=== PATIENT | female | born 1995 | race Caucasian/White ===

== ENCOUNTER 2022-10-29 03:24 | Inpatient (IN) | payer BC ==
[2022-10-29 03:38] VITALS: BMI 34.8
[2022-10-29] MEDS ORDERED: hydrALAZINE 20 MG/ML VIAL SLOW IVP PRN ×2 (04:30→04:41)
[2022-10-29 04:34] LABS: Fetal Membranes Rupture RUPTURE DETECTED (No Rupture)
[2022-10-29] MEDS ORDERED: Carboprost 250 MCG/ML AMP IM PRN (04:41)
[2022-10-29] MEDS ORDERED: Docusate 100 MG CAP PO PRN (04:41)
[2022-10-29] MEDS ORDERED: Misoprostol 200 MCG TAB PR PRN (04:41)
[2022-10-29] MEDS ORDERED: Ondansetron PF 4 MG/2 ML Vial IVP PRN ×2 (04:41→14:18)
[2022-10-29] MEDS ORDERED: Methylergonovine 0.2 MG/ML VIAL IM PRN (04:41)
[2022-10-29] MEDS ORDERED: Diphenoxylate HCl/Atropine Tablet PO PRN (04:41)
[2022-10-29] MEDS ORDERED: Acetaminophen 500 MG TAB PO PRN (04:41)
[2022-10-29] MEDS ORDERED: Promethazine HCl 25 MG/ML VIAL IM PRN ×2 (04:41→14:18)
[2022-10-29] MEDS ORDERED: fentaNYL 50 mcg/mL 1 mL Vial SLOW IVP PRN (04:41)
[2022-10-29] MEDS ORDERED: Butorphanol Tartrate 1 MG/ML VIAL SLOW IVP PRN (04:41)
[2022-10-29] MEDS ORDERED: Tranexamic Acid 1,000 MG/10 ML VIAL IVP PRN (04:41)
[2022-10-29] MEDS ORDERED: HYDROcodone/Acetaminophen 5/325 mg Tablet PO PRN (04:44)
[2022-10-29] MEDS ORDERED: Ibuprofen 800 MG TAB PO PRN (04:44)
[2022-10-29] MEDS ORDERED: Lidocaine 1% (PF) 30 ML VIAL SC PRN (04:44)
[2022-10-29] MEDS ORDERED: Acetaminophen/Codeine 30-300mg Tablet PO PRN (04:44)
[2022-10-29] MEDS ORDERED: Lactated Ringer's 1,000 ML IV SCH (04:45)
[2022-10-29] MEDS ORDERED: NS w/ Oxytocin 30 units 500 ML IV SCH (04:45)
[2022-10-29 06:25] LABS: Hematocrit 37.1 % (34.9-44.5); Hemoglobin 12.2 g/dL (12.0-15.5); Mean Corpuscular HGB CONC 32.9 g/dL (32.0-36.0); Mean Corpuscular Hemoglobin 27.8 pg (27.0-33.0); Mean Corpuscular Volume 84.5 fl (81.6-98.3); Mean Platelet Volume 10.7 fl (7.4-10.4); Platelet Count 195 10x3/uL (150-450); RBC Distribution Width 13.6 % (11.5-14.5); Red Blood Cell (RBC) Count 4.39 10x6/uL (3.90-5.03); White Blood Cell (WBC) Count 13.4 10x3/uL (3.5-10.5)
[2022-10-29] MEDS ORDERED: Calcium Carbonate 500 MG ChewTAB PO PRN (07:45)
[2022-10-29 08:56] LABS: HBSAg Index 0.21 S/CO (0-0.99); Hep B Surf Ag - L&D Non-Reactive S/CO (NonReactive); Syphilis Antibody Nonreactive (Nonreactive); Syphilis Antibody Index 0.08 S/CO (<1.00 Non-Reactive)
[2022-10-29] MEDS ORDERED: fentaNYL/Ropivacaine Epidural 100 ML ONE ×2 (11:03→19:53)
[2022-10-29] MEDS ORDERED: Lactated Ringer's 500 ML IV PRN (14:18)
[2022-10-29] MEDS ORDERED: diphenhydrAMINE 50 MG/ML VIAL IVP PRN (14:18)
[2022-10-29] MEDS ORDERED: ePHEDrine Sulfate 50 MG/10 ML VIAL SLOW IVP PRN (14:18)
[2022-10-29] MEDS ORDERED: Acetaminophen 325 MG TAB PO PRN (14:18)
[2022-10-29] MEDS ORDERED: Naloxone HCl 0.4 mg/ml Vial IVP PRN ×2 (14:18)
[2022-10-29] MEDS ORDERED: Moisturizing Cream (Eucerin) 113 GM JAR TOP PRN (14:18)
[2022-10-29] MEDS ORDERED: Communication Order-Pharmacy FS SCH (14:30)
[2022-10-29] MEDS ORDERED: fentaNYL 2 mcg/Ropivacaine 0.2% Epidural 100 ML CADD EPIDURAL SCH (14:30)
[2022-10-29] MEDS ORDERED: Acetaminophen 500 MG TAB PO SCH (19:45)
[2022-10-29] MEDS ORDERED: Bupivacaine 0.25% HCL 30 ML VIAL ONE (19:45)
[2022-10-29] MEDS ORDERED: Lidocaine 2% MPF 10 ML AMP (For Epidural Use) ONE (19:45)
[2022-10-29] MEDS ORDERED: Misoprostol 200 MCG TAB ONE (21:25)
[2022-10-29] MEDS ORDERED: Methylergonovine 0.2 MG/ML VIAL ONE (21:25)
[2022-10-30] MEDS ORDERED: NS w/ Oxytocin 30 units 500 ML IV SCH (01:50)
[2022-10-30] MEDS ORDERED: hydrALAZINE 20 MG/ML VIAL SLOW IVP PRN (01:50)
[2022-10-30] MEDS ORDERED: Lanolin Ointment 7 GM TUBE TOP PRN (01:50)
[2022-10-30] MEDS ORDERED: Zolpidem Tartrate 5 MG TAB PO PRN (01:50)
[2022-10-30] MEDS ORDERED: Methylergonovine 0.2 MG/ML VIAL IM PRN (01:50)
[2022-10-30] MEDS ORDERED: Benzocaine-Menthol 82.5 ML CAN TOP PRN (01:50)
[2022-10-30] MEDS ORDERED: Varicella virus, LIVE 0.5 ML VIAL SC ONE (01:50)
[2022-10-30] MEDS ORDERED: Promethazine HCl 25 MG/ML VIAL IM PRN (01:50)
[2022-10-30] MEDS ORDERED: diphenhydrAMINE 25 MG CAP PO PRN (01:50)
[2022-10-30] MEDS ORDERED: Misoprostol 200 MCG TAB VAG PRN (01:50)
[2022-10-30] MEDS ORDERED: Preparation H Ointment 28 GM TUBE PR PRN (01:50)
[2022-10-30] MEDS ORDERED: Bisacodyl 10 MG SUPP PR PRN (01:50)
[2022-10-30] MEDS ORDERED: Ondansetron PF 4 MG/2 ML Vial IVP PRN (01:50)
[2022-10-30] MEDS ORDERED: Boostrix 0.5 ML (Tdap) VIAL (>/=7 yrs of age) IM ONE (01:50)
[2022-10-30] MEDS ORDERED: Measles/Mumps/Rubella 10 MCG/0.5 ML VIAL SC ONE (01:50)
[2022-10-30] MEDS ORDERED: HYDROcodone/Acetaminophen 5/325 mg Tablet PO PRN (01:50)
[2022-10-30] MEDS ORDERED: Milk Of Magnesia 30 ML UDCUP PO PRN (01:50)
[2022-10-30 04:21] LABS: Hematocrit 31.7 % (34.9-44.5); Hemoglobin 10.2 g/dL (12.0-15.5); Mean Corpuscular HGB CONC 32.2 g/dL (32.0-36.0); Mean Corpuscular Hemoglobin 27.7 pg (27.0-33.0); Mean Corpuscular Volume 86.1 fl (81.6-98.3); Mean Platelet Volume 11.3 fl (7.4-10.4); Platelet Count 162 10x3/uL (150-450); RBC Distribution Width 13.8 % (11.5-14.5); Red Blood Cell (RBC) Count 3.68 10x6/uL (3.90-5.03); White Blood Cell (WBC) Count 16.6 10x3/uL (3.5-10.5)
[2022-10-30] MEDS: HYDROcodone/Acetaminophen 5/325 mg Tablet PO PRN ×3 (05:02→20:03)
[2022-10-30] MEDS ORDERED: Ibuprofen 800 MG TAB PO SCH (06:00)
[2022-10-30] MEDS: Ferrous Sulfate 325 MG TAB PO SCH ×2 (10:20→18:09)
[2022-10-30] MEDS: Docusate 100 MG CAP PO SCH ×2 (10:20→22:55)
[2022-10-30] MEDS: Prenatal Vitamin 1 TAB PO SCH (10:20)
[2022-10-30] MEDS: Cyclobenzaprine 10 MG TAB PO PRN ×2 (10:20→22:55)
[2022-10-30] MEDS ORDERED: Ketorolac Tromethamine 10 MG TAB PO SCH (13:30)
[2022-10-30] MEDS ORDERED: Cyclobenzaprine 10 MG TAB PO SCH (13:30)
[2022-10-30] MEDS: Ketorolac Tromethamine 30 MG/ML VIAL IVP PRN (22:55)
[2022-10-31] MEDS: Ketorolac Tromethamine 30 MG/ML VIAL IVP PRN (09:06)
[2022-10-31] MEDS: Docusate 100 MG CAP PO SCH ×2 (09:06→21:34)
[2022-10-31] MEDS: Cyclobenzaprine 10 MG TAB PO PRN (09:07)
[2022-10-31] MEDS: Prenatal Vitamin 1 TAB PO SCH (09:07)
[2022-10-31] MEDS: Ferrous Sulfate 325 MG TAB PO SCH ×2 (09:08→18:02)
[2022-11-01] MEDS ORDERED: Ibuprofen 800 MG TAB PO SCH (08:00)
[2022-11-01] MEDS: HYDROcodone/Acetaminophen 5/325 mg Tablet PO PRN (08:09)
[2022-11-01] MEDS: Docusate 100 MG CAP PO SCH (08:09)
[2022-11-01] MEDS: Ferrous Sulfate 325 MG TAB PO SCH (08:10)
[2022-11-01] MEDS: Prenatal Vitamin 1 TAB PO SCH (08:10)
[2022-11-01 09:05] VITALS: BP 109/56; TEMP 98.3
== END 2022-11-01 14:20 | disposition home or self-care (01) | DRG 807 ==
LOC: CSHLD/OP 03:24 → CSHLD 05:07 → CSHPP 10-30 02:45
PROVIDERS: ADMIT Obstetrics & Gynecology; ATTEND Obstetrics & Gynecology
PROC: 10E0XZZ Delivery of Products of Conception, External Approach (ICD-10-PCS; principal; 2022-10-29)
DX: O42.02 Full-term premature rupture of membranes, onset of labor within 24 hours of rupture (principal); Z37.0 Single live birth; Z3A.37 37 weeks gestation of pregnancy; O24.429 Gestational diabetes mellitus in childbirth, unspecified control; O9A.22 Injury, poisoning and certain other consequences of external causes complicating childbirth; S16.1XXA Strain of muscle, fascia and tendon at neck level, initial encounter; X58.XXXA Exposure to other specified factors, initial encounter; O70.0 First degree perineal laceration during delivery; O76 Abnormality in fetal heart rate and rhythm complicating labor and delivery
CPT/HCPCS: 36415; 36416; 51702; 62273; 84112; 85027; 86780; 86850; 86900; 86901; 87340; 99285; J1885; J2550; J2590; S0020

== ENCOUNTER 2022-12-05 03:44 | Emergency (ER) | payer BC ==
[2022-12-05 04:04] LABS: Bilirubin Neg (Negative); Blood, Urine 50 (Negative); Clarity Clear (Clear); Glucose, Urine (Dipstick) Normal (Negative); Ketone, Urine Negative (Negative); Leukocyte Negative (Negative); Nitrite Negative (Negative); Protein, Urine (Dipstick) Negative (Neg-Trace); Specific Gravity, Urine 1.025 (1.005-1.030); Urobilinogen Normal mg/dL (Less than 2)
[2022-12-05] MEDS ORDERED: Ondansetron PF 4 MG/2 ML Vial ONE (04:04)
[2022-12-05] MEDS ORDERED: Ketorolac Tromethamine 30 MG/ML VIAL ONE (04:04)
[2022-12-05 04:08] LABS: Pregnancy Test - Urine (BHCG) Negative (Negative); Pregu Control Background? CLEAR/WHITE (CLR/WHITE); Pregu Control Bar Appear? YES (CONTROL BAR); Specific Gravity 1.025 (1.002-1.036)
[2022-12-05 04:14] LABS: Bacteria/HPF Rare-Few HPF (None Seen); CAUTI Indications for Culture Pelvic or flank pain; Squamous Epithelial 0-3 HPF (0-3); WBC/HPF 0-3 HPF (0-3)
[2022-12-05 04:15] LABS: Urine Culture Reflex No No
[2022-12-05 04:31] LABS: #Basophils 0.1 10x3/uL (0.0-0.2); #Eosinphils 0.6 10x3/uL (0.0-0.5); #Monocytes 0.8 10x3/uL (0.0-1.1); #Neutrophils 4.4 10x3/uL (1.5-8.4); %Basophils 0.8 % (0.0-2.0); %Eosinophils 8.1 % (0.0-6.0); %Lymphocytes 24.3 % (18.0-47.0); %Monocytes 10.6 % (0.0-10.0); %Neutrophils 55.8 % (40.0-75.0); Hemoglobin 11.2 g/dL (12.0-15.5); Mean Corpuscular Hemoglobin 27.1 pg (27.0-33.0); Mean Corpuscular Volume 84.7 fl (81.6-98.3); Mean Platelet Volume 9.7 fl (7.4-10.4); Platelet Count 207 10x3/uL (150-450); RBC Distribution Width 13.5 % (11.5-14.5); Red Blood Cell (RBC) Count 4.13 10x6/uL (3.90-5.03); White Blood Cell (WBC) Count 7.9 10x3/uL (3.5-10.5)
[2022-12-05 04:42] LABS: Anion Gap 13 mmol/L (10-20); BUN (Urea Nitrogen) 22 mg/dL (7.0-18.7); Calc. Creatinine Clearance 0 mL/min (70-130); Calcium 9.2 mg/dL (7.8-10.44); Carbon Dioxide 22 mmol/L (22-29); Chloride 108 mmol/L (98-107); Estimated GFR 95; Glucose 97 mg/dL (70-105); Potassium 3.9 mmol/L (3.5-5.1); Sodium 139 mmol/L (136-145)
== END 2022-12-05 07:20 | disposition home or self-care (01) ==
LOC: CSHERS 03:44
DX: N13.2 Hydronephrosis with renal and ureteral calculous obstruction (principal)
CPT/HCPCS: 74176; 80048; 81001; 81025; 85025; 96374; 96375; J1885; J2405

== ENCOUNTER 2022-12-07 09:47 | Emergency (ER) | payer BC ==
[2022-12-07 10:37] LABS: Bilirubin Neg (Negative); Blood, Urine 250 (Negative); Clarity Slightly Cloudy (Clear); Glucose, Urine (Dipstick) Normal (Negative); Ketone, Urine Negative (Negative); Leukocyte 25 (Negative); Nitrite Negative (Negative); Protein, Urine (Dipstick) 30 mg/dl (Neg-Trace); Urobilinogen Normal mg/dL (Less than 2)
[2022-12-07 10:47] LABS: CAUTI Indications for Culture Pelvic or flank pain; RBC/HPF 21-50 HPF (0-3)
[2022-12-07 10:49] LABS: Bacteria/HPF Rare-Few HPF (None Seen); Urine Culture Reflex No No
[2022-12-07 11:23] LABS: #Eosinphils 0.5 10x3/uL (0.0-0.5); #Monocytes 0.9 10x3/uL (0.0-1.1); #Neutrophils 3.5 10x3/uL (1.5-8.4); %Basophils 0.6 % (0.0-2.0); %Eosinophils 7.6 % (0.0-6.0); %Lymphocytes 30.4 % (18.0-47.0); %Monocytes 12.2 % (0.0-10.0); %Neutrophils 48.8 % (40.0-75.0); Hematocrit 35.2 % (34.9-44.5); Mean Corpuscular HGB CONC 31.3 g/dL (32.0-36.0); Mean Corpuscular Hemoglobin 26.9 pg (27.0-33.0); Mean Corpuscular Volume 86.1 fl (81.6-98.3); Mean Platelet Volume 9.5 fl (7.4-10.4); Platelet Count 200 10x3/uL (150-450); RBC Distribution Width 13.4 % (11.5-14.5); Red Blood Cell (RBC) Count 4.09 10x6/uL (3.90-5.03); White Blood Cell (WBC) Count 7.1 10x3/uL (3.5-10.5)
[2022-12-07 11:42] LABS: ALT (SGPT) 24 U/L (8-55); AST (SGOT) 23 U/L (5-34); Albumin 3.7 g/dL (3.5-5.0); Alkaline Phosphatase 69 U/L (40-110); Anion Gap 12 mmol/L (10-20); BUN (Urea Nitrogen) 17 mg/dL (7.0-18.7); Bilirubin, Total 0.8 mg/dL (0.2-1.2); Calc. Creatinine Clearance 0 mL/min (70-130); Calcium 8.7 mg/dL (7.8-10.44); Carbon Dioxide 25 mmol/L (22-29); Chloride 105 mmol/L (98-107); Estimated GFR 95; Glucose 81 mg/dL (70-105); Potassium 4.5 mmol/L (3.5-5.1); Protein, Total 6.7 g/dL (6.0-8.3); Sodium 137 mmol/L (136-145)
[2022-12-07 11:47] LABS: BHCG - Serum Negative (NEGATIVE); Pregs Control Background? CLEAR/WHITE (CLR/WHITE); Pregs Control Bar Appear? YES (CONTROL BAR)
[2022-12-07] MEDS ORDERED: Iopamidol 15 ML ONE (15:21)
[2022-12-07] MEDS ORDERED: Lidocaine 1% PF 5 ML VIAL ONE (15:27)
[2022-12-07] MEDS ORDERED: PROPOFOL 20 ML ONE (15:27)
[2022-12-07] MEDS ORDERED: fentaNYL 50 mcg/mL 1 mL Vial ONE (15:27)
[2022-12-07] MEDS ORDERED: Dexamethasone 4 mg/ml Vial ONE (15:58)
[2022-12-07] MEDS ORDERED: Ondansetron PF 4 MG/2 ML Vial ONE (15:58)
[2022-12-07] MEDS ORDERED: CEFAZOLIN 1 GM VIAL ONE (16:06)
[2022-12-07] MEDS ORDERED: Water For Injection,Sterile 20 ML ONE (16:07)
== END 2022-12-07 16:36 | disposition admitted as inpatient to this hospital (09) ==
LOC: CSHERS 09:47
DX: N20.1 Calculus of ureter (principal)
CPT/HCPCS: 74019; 80053; 81001; 82365; 83605; 84703; 85025; 88300; C2625; J0690; J1100; J2405; J2704; J3010; Q9967